=== PATIENT | male | born 1950 | race Caucasian/White ===

== ENCOUNTER 2020-03-08 14:55 | Emergency (ER) | payer OTHER ==
[~2020-03-08] VITALS: Ht 152.4 cm; Wt 81.6 kg
[2020-03-08] MEDS ORDERED: PEPCID AC20 MG PO (15:29)
[2020-03-08] MEDS ORDERED: CARAFATE1 GM PO (15:29)
== END 2020-03-08 15:56 | disposition home or self-care (01) ==
LOC: ER 14:55
DX: R12 Heartburn (principal)

== ENCOUNTER 2020-03-10 16:32 | Emergency (ER) | payer OTHER ==
[~2020-03-10] VITALS: Ht 152.4 cm; Wt 81.2 kg
[~2020-03-10 16:32] MED LIST: CARAFATE1 GM PO; PEPCID AC20 MG PO
== END 2020-03-10 22:40 | disposition home or self-care (01) ==
LOC: ER 16:32
DX: R42 Dizziness and giddiness (principal)